=== PATIENT | male | born 2000 | race Two or more races ===

== ENCOUNTER 2025-09-25 17:41 | Emergency (ER) | payer MEDICAID, SELFPAY ==
[2025-09-25 17:42] VITALS: BMI 23.1
[2025-09-25 18:46] VITALS: BP 105/63; PULSE 69; RESP 19; TEMP 36.8; O2SAT 97
--- NOTE | 2025-09-25 19:24 | EDNOTE_ITS ---
ED Wound/Laceration-RME/HPI General Chief Complaint: Wound/Laceration Stated Complaint: LAC TO R LEG S/P AGAINT METAL RAZOR Time Seen by Provider: 09/25/25 18:30 Arrival date/time: 09/25/25 17:41 25-year-old male patient came in for evaluation regarding laceration to the right lower leg. Incident happened few minutes prior to ER visit, patient got a laceration with a metal. Patient sustained sick centimeter superficial gaping laceration. Denies any other injury. Tetanus vaccination is unknown. Patient is ambulatory. Related Data Previous Rx's ?Medication ?Instructions ?Recorded acetaminophen 650 mg 650 mg PO Q8H PRN fever or p ain 05/21/23 tablet,extended release #30 tabs ibuprofen 600 mg tablet 600 mg PO Q8H PRN fever or p ain 05/21/23 #30 tabs ibuprofen 800 mg tablet 800 mg PO Q8H PRN pain #30 t abs 09/25/25 Allergies Allergy/AdvReac Type Severity Reaction Status Date / Time No Known Allergies Allergy Intermediate NONE Uncoded 09/25/25 17:44 Review of Systems Review of Systems Narrative Review of Systems: Review of system reviewed and within normal limits except mentioned in HPI ED Exam Narrative Physical exam: VITAL SIGNS: Reviewed. GENERAL APPEARANCE: Alert and interactive, follows commands, no acute distress, HEAD AND FACE: Non-traumatic. ENT: PERRL, pink conjunctivitis, eyelid no trauma, Mucous membrane moist. NECK: Supple, nontender, no nuchal rigidity. CHEST: No tenderness, no crepitus, no paradoxical movement, no retractions. LUNGS: Clear, well ventilated, symmetric, no rales, no wheezing, no ronchi, no stridor, good breath sounds bilaterally. HEART: Regular rate, regular rhythm, no murmur, no gallops. ABDOMEN: Soft, positive bowel sounds, nondistended, no guarding, nontender, no rebound, no masses, RECTAL: Deferred. GENITAL: Deferred. NEUROLOGICAL: Gross motor function intact sensory function intact, Appropriate for age. MUSCULOSKELETAL: low back nontender, full range of motion. EXTREMITIES:+6 cm gaping laceration, right lower leg medial aspect, nontender, full range of motion. SKIN: Color pink, dry, no rash, no lacerations, no abrasions, no contusions. LYMPHATICS: Deferred. Course Quality Measures none Orders Category Date Time Status Ibuprofen Tab [Motrin Tab] Med 09/25/25 19:24 Once 800 mg PO X1 ONE TET,DIP/PERT AC (Adult)-Tdap [Boostrix Adult (Tdap) Med 09/25/25 19:24 Once Vacc] 0.5 ml IMI .ONCE ONE Vital Signs Vital signs: Vital Signs Temperature 98.3 F 09/25/25 18:46 Pulse Rate 69 09/25/25 18:46 Respiratory Rate 19 09/25/25 18:46 Blood Pressure 105/63 09/25/25 18:46 Pulse Oximetry (%) 97 09/25/25 18:46 Oxygen Delivery Method Room Air 09/25/25 18:46 Wound / Laceration MDM Narrative MDM Narrative:: 25-year-old male patient came in for evaluation regarding laceration to the right lower leg. Incident happened few minutes prior to ER visit, patient got a laceration with a metal. Patient sustained sick centimeter superficial gaping laceration. Denies any other injury. Tetanus vaccination is unknown. Patient is ambulatory. Wound cleansed with skin cleanser, and with patient consent I was able to apply karime, I applied 8 karime with no difficulty. Patient tolerated the procedure well. Sterile dressing applied patient received Boostrix and Motrin Stable for discharged home Patient data External records reviewed:: None Clinical information provided by:: patient Social determinants that could affect healthcare access:: none Patient has the following chronic illnesses:: Plan How is presenting disease/condition affected by chronic disease/condition?: no chronic disease Evaluation data The following diagnostics were reviewed and interpreted by me:: other (specify) (None) Lab and/or radiology exams considered but not ordered:: None Interpretation Summary: None Medications / Prescriptions Medications or Prescriptions considered but not ordered:: None Medication administrations:: None Consultations Consultation(s) initiated? (list below): No Diagnosis Wound Differential Diagnosis: laceration, abrasion and avulsion of skin Most likely diagnosis given after review of the tests above:: Lower leg laceration Admission Indicated Admission indicated?: not indicated Admission Request Was there a request for admission?: No Disposition Plan Disposition Plan: Discharge Discharge Attestation Discharge Attestation: The patient and all family members were given an opportunity to ask questions and understood the discharge instructions. Discharge instructions specifically effects, indications for sooner follow up or return to the emergency department, and the expected course of current diagnosis. Patient condition: Stable Discharge Plan Plan Patient Disposition: HOME (Self Care) Discharge Disposition comment: Stable Prescriptions/Referrals Prescriptions/Med Rec: New ibuprofen 800 mg tablet 800 mg PO Q8H PRN (Reason: pain) Qty: 30 0RF No Action acetaminophen 650 mg tablet extended release 650 mg PO Q8H PRN (Reason: fever or pain) Qty: 30 0RF Rx Instructions: swallow whole; do not chew/break/dissolve/open ibuprofen 600 mg tablet 600 mg PO Q8H PRN (Reason: fever or pain) Qty: 30 0RF Referrals: No Primary/Family,Physician [Primary Care Provider] - In 1 week Problem List Clinical Impression: Laceration of leg Patient/Caregiver Discharge Instructions Discharge Activity: activity as tolerated Education Materials: ED Laceration: All Closures Additional Instructions: Thank you for the opportunity for serving you today. You are stable for discharged . You are advised to: Follow-up with your PCP in 1 to 2 days Return to ED for worsening of symptoms Increase oral fluids Take medication as prescribed For removal of karime in 7 to 10 days Print Language: Slovak Stand Alone Forms: Stefania Award Info., Patient Portal Info Letter PA/PAT Supervising Physician EDILIA/PAT Supervising Physician: MD Sanjeev
[2025-09-25] MEDS: IBUPROFEN TAB 400 MG TABLET 800 MG PO (19:44)
[2025-09-25] MEDS: DIPHTH,PERTUSS(ACELL),TET VAC 0.5 ML SYR- ADULT IMi (19:49)
== END 2025-09-25 20:10 | disposition home or self-care (01) ==
PROVIDERS: Emergency Provider Emergency Medicine
DX: S81.811A Laceration without foreign body, right lower leg, initial encounter (principal); W45.8XXA Other foreign body or object entering through skin, initial encounter; Z23 Encounter for immunization
CPT/HCPCS: 12001; 90471; 90715; 99282; A9270